=== PATIENT | female | born 2000 | race Caucasian/White ===

== ENCOUNTER 2020-11-11 22:41 | Emergency (ER) | payer MEDICAID ==
[~2020-11-11] VITALS: Ht 162.6 cm; Wt 88.0 kg
[2020-11-11 23:17] VITALS: BP 129/83
[2020-11-11 23:37] LABS: CLARITY URINE CLEAR (CLEAR); COLOR URINE YELLOW (YELLOW); KETONES URINE NEGATIVE (NEGATIVE); LEUKOCYTE ESTERASE URINE 1+ (NEGATIVE); NITRITE URINE NEGATIVE (NEGATIVE); OCCULT BLOOD URINE NEGATIVE (NEGATIVE); PH URINE 5.5 (4.5-8.0); PROTEIN URINE NEGATIVE (NEGATIVE); SPECIFIC GRAVITY URINE 1.017 (1.005-1.030); UROBILINOGEN URINE 0.2 E.U./dL (0.2-1.0)
== END 2020-11-12 02:12 | disposition home or self-care (01) ==
LOC: ER 22:41
DX: O26.891 Other specified pregnancy related conditions, first trimester (principal); R06.7 Sneezing; R07.0 Pain in throat; R05 Cough; Z3A.13 13 weeks gestation of pregnancy; Z20.822 Contact with and (suspected) exposure to COVID-19
CPT/HCPCS: 81003; 81025; 99283; C9803; U0003; U0005

== ENCOUNTER 2021-12-04 13:44 | Emergency (ER) | payer MEDICAID ==
[~2021-12-04] VITALS: Ht 157.5 cm; Wt 105.0 kg
[2021-12-04 13:57] VITALS: BP 114/63
[2021-12-04 14:28] LABS: CLARITY URINE TURBID (CLEAR); COLOR URINE YELLOW (YELLOW); KETONES URINE NEGATIVE (NEGATIVE); LEUKOCYTE ESTERASE URINE 3+ (NEGATIVE); NITRITE URINE NEGATIVE (NEGATIVE); OCCULT BLOOD URINE 3+ (NEGATIVE); PH URINE 5.5 (4.5-8.0); PROTEIN URINE 3+ (NEGATIVE); UROBILINOGEN URINE 0.2 E.U./dL (0.2-1.0)
[2021-12-04] MEDS ORDERED: NITR100C MT (15:00)
== END 2021-12-04 15:11 | disposition home or self-care (01) ==
LOC: ER 13:59
DX: N39.0 Urinary tract infection, site not specified (principal); B95.1 Streptococcus, group B, as the cause of diseases classified elsewhere; R31.0 Gross hematuria
CPT/HCPCS: 81003; 99283